=== PATIENT | male | born 1960 | race Caucasian/White ===

== ENCOUNTER → 2016-11-25 | Day surgery (SDC) | payer BC ==
[~2016-11-25] VITALS: Ht 190.5 cm; Wt 120.2 kg
[2016-11-25] VITALS (8 sets, daily range): BP systolic 129–155; BP diastolic 81–101
[~2016-11-25] MED LIST: ACETAMINOPHEN120 MG RECTAL; ALLOPURINOL100 M1 ORAL; Bupivacaine 0.25% Inj 30ml INJ ONE; Bupivacaine w/Epi 0.25% 30ml Vial INJ ONE; D5 1/2NS 1,000 ML IV SCH; DIAZEPAM2 MG ORAL; DiphenhydrAMINE 50mg/ml Inj IVP PRN; Duramorph PF 10mg/10ml amp EPIDUR ONE; HYDROmorphone 1mg/ml Carpuject SUBQ PRN; Hydromorphone 0.5mg/0.5ml inj IVP PRN; Kenalog-40 1ml Vial ONE; Ketorolac 30mg Inj IV PRN; Ketorolac 30mg Inj ONE; LIPITOR20 MG ORAL; LORAZEPAM1 MG ORAL; LR 1000ml 1,000 ML IVLG SCH; Lidocaine 1% 10mg/ml/Epi 0.005mg/ml 30ml vial INJ ONE; Meperidine 25mg/ml Inj IV PRN; Midazolam 2mg/2ml Inj ONE; Morphine Sulfate PF 10 ML ONE; NORCO 5-325 TA1 EACH ORAL; Norco 5mg/325mg tab ORAL PRN; OXYCODONE HCL10 MG ORAL; PLAVIX75 MG ORAL; Propofol 10mg/ml 20ml IV ONE; Tylenol #3 tab (300mg/30mg) ORAL PRN; ceFAZolin 1gm in D5W 55ml IVP ONE; celeBREX 200mg Cap **SURGERY PATIENTS ONLY ORAL ONE; fentaNYL 100 mcg/2 mL IV ONE; oxyCONTIN 20mg tab ORAL ONE
--- NOTE | 2016-11-25 07:17 | Anethesia Preoperative Eval ---
Anesthesia Pre-op PMH/ROS General Date of Evaluation: Nov 25, 2016 Time of Evaluation: 07:12 Anesthesiologist: [place] ASA Score: ASA 2 Mallampati Score Class I : Soft palate, uvula, fauces, pillars visible Class II: Soft palate, uvula, fauces visible Class III: Soft palate, base of uvula visible Class IV: Only hard plate visible Mallampati Classification: Class II Surgeon: Matt Diagnosis: R knee pain Surgical Procedure: R knee arthroscopy Anesthesia History: none Family History: no anesthesia problems Allergies: Coded Allergies: No Known Allergies (Unverified , 11/24/16) Past Medical History Cardiovascular: Reports: HTN - mild, Denies: CAD, PA, arrhythmia, other, valve dz Pulmonary: Reports: TIAGO, Denies: COPD, asthma, other Gastrointestinal/Genitourinary: Reports: GERD, Denies: CRI, ESRD, other Neurologic/Psychiatric: Denies: CVA, TIA, dementia, depression/anxiety, other Endocrine: Reports: steroids, Denies: DM, hypothyroidism, other HEENT: Denies: [place] (L), [place] (R), cataract (L), cataract (R), glaucoma, other Hematology/Immune: Denies: DVT, anemia, bleeding disorder, other Musculoskeletal/Integumentary: Reports: DJD, Denies: DDD, OA, RA, edema, other Other: other - overweight PMH Narrative: as above PSxH Narrative: Uvuloplasty, L knee quad tendon repair Anesthesia Pre-op Phys. Exam Physician Exam Last Vital Signs Date Time Temp Pulse Resp B/P Pulse Ox O2 Delivery O2 Flow Rate FiO2 11/25/16 06:01 97.3 68 20 153/88 96 Room Air Constitutional: NAD Neurologic: CN 2-12 intact Cardiovascular: RRR, no M/R/G Respiratory: CTA Gastrointestinal: S/NT/ND Airway Exam Mallampati Score: Class II MO: full Neck: short ROM: full Teeth: intact Dentures: no lower, no upper Anesthesia Pre-op A/P Labs see chart Studies Pre-op Studies: EKG - NSR Risk Assessment & Plan Assessment: ASA2 Plan: GA with LMA Status Change Before Surgery: No Pre-Antibiotics Dru gr. Ancef Given Within 1 Hr of Incision: Yes Time Given: 07:20 HALEY FORDE M.D. Nov 25, 2016 07:16
--- NOTE | 2016-11-25 07:21 | Pre-Procedure Note/Attestation ---
Pre-Procedure Note/Attestation Complete Prior to Procedure Planned Procedure: right Procedure Narrative: knee arthroscopy, lateral menisectomy, chondroplasty Indications for Procedure Pre-Operative Diagnosis: left knee menisecus tear, arthritis Attestation I attest that I discussed the nature of the procedure; its benefits; risks and complications; and alternatives (and the risks and benefits of such alternatives ), prior to the procedure, with the patient (or the patient's legal patient care representative). I attest that, if there was a reasonable possibility of needing a blood transfusion, the patient (or the patient's legal patient care representative) was given the [facility] standardized written summary, pursuant to the [place] Blood Safety Act ([place] Health and Safety Code # 1645, as amended). I attest that I re-evaluated the patient just prior to the surgery and that there has been no change in the patient's H&P, except as documented below: NICHOLAS STANFORD Nov 25, 2016 07:21
--- NOTE | 2016-11-25 07:22 | Operative Note - PDOC ---
Operative Note Operative Note Pre-op Diagnosis: left knee menisecus tear, arthritis Procedure: left knee arthroscopy, see op report Post-op Diagnosis: same as pre-op plus Operative Findings: consistent w/pre-op dx studies Anesthesia: MAC Specimen: none Complications: none Condition: stable Estimated Blood Loss: minimal Implant(s) used?: No NICHOLAS STANFORD Nov 25, 2016 07:22
--- NOTE | 2016-11-25 09:53 | Immediate Post-Op Evaluation ---
Immediate Post-Op Evalulation Immediate Post-Op Evalulation Procedure: R Knee arthroscopy meniscectomy Date of Evaluation: Nov 25, 2016 Time of Evaluation: 08:19 IV Fluids: 800 Blood Products: none Estimated Blood Loss: min Urinary Output: none Blood Pressure Systolic: 148 Blood Pressure Diastolic: 92 Pulse Rate: 76 Respiratory Rate: 20 O2 Sat by Pulse Oximetry: 99 Temperature (Fahrenheit): 97.5 Pain Score (1-10): 2 Nausea: No Vomiting: No Complications none Patient Status: reacts, patent, none Hydration Status: adequate HALEY FORDE M.D. Nov 25, 2016 09:53
--- NOTE | 2016-11-25 09:55 | 48 Hour Post Anesthesia Eval ---
Post Anesthesia Evaluation Procedure: R Knee arthroscopy meniscectomy Date of Evaluation: Nov 25, 2016 Time of Evaluation: 09:53 Blood Pressure Systolic: 132 0: 58 Pulse Rate: 74 Respiratory Rate: 20 Temperature (Fahrenheit): 97.4 O2 Sat by Pulse Oximetry: 98 Airway: patent Nausea: No Vomiting: No Pain Intensity: 2 Hydration Status: adequate Cardiopulmonary Status: stable Mental Status/LOC: patient returned to baseline Follow-up Care/Observations: n/a Post-Anesthesia Complications: none Follow-up care needed: ready to discharge HALEY FORDE M.D. Nov 25, 2016 09:55
--- NOTE | 2016-11-25 19:58 | Operative Note - Dictated ---
DATE OF OPERATION: 11/25/2016 PREOPERATIVE DIAGNOSES: 1. Right knee degenerative lateral meniscus tear. 2. Right knee compartment arthritis. POSTOPERATIVE DIAGNOSES: 1. Right knee degenerative lateral meniscus tear. 2. Right knee compartment arthritis. PROCEDURES: 1. Right knee arthroscopic partial lateral subtotal lateral meniscectomy. 2. Synovectomy, medial and lateral patellofemoral compartment. 3. Central chondroplasty, lateral compartment. SURGEON: Pj Gutierrez M.D. ANESTHESIA: MAC with local. INDICATION FOR PROCEDURE: The patient is a pleasant gentleman, who was noted to have significant right knee pain. MRI showed some chondral damage in the lateral compartment of the knee, but also degenerative meniscus tear. Given his age, activity level, and mechanical symptoms that he was complaining elected to undergo right knee arthroscopic lateral meniscectomy, synovectomy, and gentle chondroplasty. He understood that this would address pain from the meniscus and may or may not improve his ultimate symptoms given his underlying chondral damage. Alternatives discussed would include partial knee replacement. At this point, the patient elected to undergo right knee arthroplasty after understanding limitations of the procedure, risks, limitation, and expectations including DVT, infection, neurovascular damage, need for future surgery, risk of anesthesia, and medical complications, etc. were all discussed in detail. Questions were addressed. DESCRIPTION OF PROCEDURE: Informed consent was obtained. The patient was brought to the operating room and placed under general anesthesia. Tourniquet was applied to the right proximal thigh. Right leg was prepped and draped in a sterile manner. Time-out was performed. Under sterile condition, 30 mL of 0.25% Marcaine was injected into the right knee. Portal sites were injected with 1% lidocaine with epinephrine. An inferolateral stab incision was then made with trocar introduced into the knee joint. There was significant synovitis in the patellofemoral medial compartment. A medial working portal was established. Synovectomy of the medial and patellofemoral compartment was completed. Once that was done, we could gain entrance into the medial compartment. There was no significant meniscal or chondral damage. The ACL was probed and noted to be intact. Lateral compartment was entered. There was grave 4 chondral damage in the tibial plateau as well as grade 3 to grade 4 chondral damage in the femoral condyle. There is a significant degenerative tear involving the remnants of the posterior horn. Partial meniscectomy of posterior horn lateral meniscus was completed. This was extended anteriorly. Once this was completed, the instruments were removed. Portal sites were closed using 3-0 Monocryl sutures. Steri-Strips and sterile dressing were applied. The patient was awoken and taken to recovery in stable condition. Intraarticular injection containing 0.25% Marcaine with epinephrine, 40 mg of Kenalog, 30 mg Toradol, was injected. Pj Gutierrez M.D. DR: DELANEY JOB#: [id number] CC:
== END | disposition home or self-care (01) ==
LOC: SUR 05:06
DX: M23.221 Derangement of posterior horn of medial meniscus due to old tear or injury, right knee (principal); M17.11 Unilateral primary osteoarthritis, right knee; I10 Essential (primary) hypertension; G47.33 Obstructive sleep apnea (adult) (pediatric); K21.9 Gastro-esophageal reflux disease without esophagitis; E66.3 Overweight; E78.00 Pure hypercholesterolemia, unspecified; J32.9 Chronic sinusitis, unspecified; Z86.711 Personal history of pulmonary embolism; Z86.718 Personal history of other venous thrombosis and embolism
CPT/HCPCS: 29881; J1885; J2250; J2274; J2704; J3010; J3301; J3490; 94003; 94150